=== PATIENT | female | born 1985 | race Caucasian/White ===

== ENCOUNTER 2020-02-28 17:49 | Outpatient (CLI) | payer BC, SELFPAY ==
--- NOTE | ~2020-02-28 | US_ITS ---
EXAMINATION: US thyroid DATE: 02/28/2020 18:08 INDICATION: Goiter TECHNIQUE: Multiple ultrasound images of the thyroid were obtained. COMPARISON: None. FINDINGS: The right thyroid lobe measures 5.7 x 2.2 x 1.9 cm. The left thyroid lobe measures 5.3 x 2.3 x 2.2 c m. There are several wider than tall very hypoechoic solid nodules with smooth margins and without e chogenic foci (TI-RADS 4, moderately suspicious , FNA if >=1.5 cm, annual followup is >1 cm), the lar gest in the left thyroid lobe measuring 1.6 cm in maximal diameter and 2 in the right thyroid lobe me asuring 1.5 cm and 0.9 cm in maximal diameters. There is normal echotexture, echogenicity and vascula r flow throughout the surrounding thyroid gland. IMPRESSION: 1. Multinodular goiter. Recommend ultrasound guided biopsy of the largest 1.6 cm TI RADS 4 left thyro id nodule. Could also consider biopsy of the 1.5 cm TI RADS 4 right thyroid nodule. Reviewed, dictated and finalized at location . [employer] SOLUT[employer] SPECIALIST IMPRESSION: 1. Multinodular goiter. Recommend ultrasound guided biopsy of the largest 1.6 c m TI RADS 4 left thyroid nodule. Could also consider biopsy of the 1.5 cm TI RA DS 4 right thyroid nodule.
== END 2020-02-28 17:50 ==
PROVIDERS: PCP Family Medicine; Visit Provider Family Medicine
DX: E04.2 Nontoxic multinodular goiter (principal)
CPT/HCPCS: 76536

== ENCOUNTER 2020-03-20 10:29 | Outpatient (CLI) | payer BC, SELFPAY ==
--- NOTE | ~2020-03-20 | US_ITS ---
EXAMINATION: US FNA w image guidance DATE: 03/20/2020 11:38 INDICATION: Nontoxic single thyroid nodule TECHNIQUE: A time-out was performed to verify the patient's name, date of , and procedure to be performed . The procedure and its benefits and risks were discussed with the patient. Risks specifically discus sed included bleeding and infection. The patient understood the risks and agreed to proceed. The neck was prepped and draped in the usual sterile manner. 4 mL 1% lidocaine was used for local anesthesia . 6 passes were made with a 25G needle into the lesion. Appropriate needle location was documented with continuous sonographic guidance. The specimens were passed to the rad technologist in the room. A sterile bandage was applied. There were no immediate complications. FINDINGS: Grayscale ultrasound images demonstrate biopsy needles advanced into a 2.1 cm solid very hypoechoic l eft thyroid nodule. On real-time imaging the largest nodules in the right thyroid lobe as measured on the prior study appears to be comprised of 2 separate nodules, a smaller nodule measuring 7 mm and t he larger measuring 1.3 cm, neither which meet criteria for biopsy. IMPRESSION: 1. Successful ultrasound-guided fine needle aspiration of a 2.1 cm TI RADS 4 left thyroid nodule. Reviewed, dictated and finalized at location A. 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 Successful ultrasound-guided fine needle aspiration of a 2.1 cm TI RADS 4 l eft thyroid nodule.
== END 2020-03-20 10:30 | disposition home or self-care (01) ==
LOC: ANHIMG 10:33
PROVIDERS: PCP Family Medicine; Visit Provider Otolaryngology
DX: E04.1 Nontoxic single thyroid nodule (principal)
CPT/HCPCS: 10005; 88173; 88305

== ENCOUNTER 2023-02-10 08:53 | Outpatient (CLI) | payer BC, SELFPAY ==
--- NOTE | 2023-02-23 09:14 | WPDHOMESLEEP ---
Sleep Study - Home Unattended Date of Study: 02/10/23 Ordering Provider: JULIO CESAR Florian Interpreting Provider: Brandi Rinaldi MD Home Sleep Study Type: Watch PAT Height: 1.68 m Weight: 108.862 kg Body Mass Index: 38.7 Neck Circumference (inches): 14.5 [place]: 11 Reason for Sleep Study Snoring, daytime hypersomnia Sleep History Concepcion Victoria is a 37-year-old female with history of GERD and tobacco use who underwent a home sleep test for evaluation of snoring, daytime hypersomnia, and morning headaches. there is a family history of sleep apnea, her father uses CPAP. She states she can get 10-12 hours of sleep at night and still wake up feeling tired. She never awakens from sleep short of breath. She occasionally awakens at night with heartburn, belching or cough. She frequently snores and frequently snores loudly enough that others complain. She never has trouble sleeping when she has a cold. She never suddenly wakes up gasping for breath during the night. She never has breathing problems at night. She never sweats excessively at night. She rarely notices her heart pounding or beating irregularly during the night. She frequently falls asleep during the day. She never falls asleep while driving. She never experiences loss of muscle tone with strong emotion. She never has trouble at work because of sleepiness. She occasionally feels paralyzed on waking or falling asleep. She never experiences vivid dreams upon waking or falling asleep. She does not feel afraid of going to sleep. She never has nightmares. She frequently recalls her dreams. She occasionally has thoughts racing through her mind. She never feels sad or depressed. She frequently feels anxiety or worry about things. She never notices parts of her body jerk. She rarely kicks during the night. She rarely feels crawling or aching feelings in her legs. She occasionally feels leg pain at night. She constantly grinds her teeth during sleep and never has morning jaw pain. She never feels bothered by pain during the day and is never awakened by pain during the night. She rarely wakes up feeling stiff in the morning. She frequently wakes with pain in her neck, spine, or joints. Normal bedtime is around 8:30pm on the weekdays and 10pm on the weekends, taking just a few minutes to fall asleep. She typically gets about 8 to 10 hours of sleep per night. Her wake up time is around 5:45am on the weekdays and 9 to 10am on the weekends. She typically wakes up a couple times per night, awake a few minutes to go use the bathroom then back to sleep. She takes naps in the afternoon or evening When she is off work. A short nap lasting 10-15 minutes may be refreshing. She is usually drowsy for 3 hours or longer after waking. she frequently has morning headaches, daytime sleepiness, memory or concentration problems and problems with sexual function. Habits: Current tobacco smoker. Drinks about 4 caffeinated beverages per day. No alcohol or recreational substances. [facility] Past Medical History Medical History GERD (gastroesophageal reflux disease) Tobacco abuse Surgical History Surgical History Tubal ligation status Family History Family History Father Hypertension Diabetes mellitus Heart disease Atrial fibrillation and flutter Anxiety Mother Melanoma Anxiety Hypothyroid Grandparent Carcinoma of colon maternal grandmother Leukemia maternal grandfather Heart disease paternal grandfather Social History Social History Social History: Smoking packs per day: 1 Smoking cigarettes per day: 20.0 Years smoked: 15 Smoking pack-years: 15.00 Smoking status: Current every day smoker Tobacco type: cigarettes Second clarso
[2023-02-23 09:27] VITALS: BMI 38.7
== END 2023-02-11 11:17 | disposition home or self-care (01) ==
LOC: ANHCSM 08:53
PROVIDERS: PCP Family Medicine; Visit Provider Physician Assistant
DX: G47.10 Hypersomnia, unspecified (principal)
CPT/HCPCS: 95800

== ENCOUNTER 2023-02-20 15:51 | Outpatient (CLI) | payer BC, SELFPAY ==
--- NOTE | ~2023-02-20 | CT_ITS ---
EXAMINATION:CT diagnostic chest wo con DATE: 02/20/2023 16:08 INDICATION: Localized enlarged lymph nodes. TECHNIQUE: Computed tomography (CT) of the chest was performed without intravenous contrast. Automate d exposure control and iterative reconstruction technique were employed. The dose-length product (DLP ) was 512.39 mGy-cm. COMPARISON: None. FINDINGS: The lungs demonstrate mild atelectasis. No pleural effusion. The heart size is normal. No p ericardial effusion. There is a gallstone in the gallbladder, which is normal in size. There are no p athologically enlarged lymph nodes. The bones are unremarkable. IMPRESSION: 1. No lymphadenopathy. Reviewed, dictated and finalized at location E. 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 No lymphadenopathy.
== END 2023-02-20 15:52 ==
LOC: MICIMG 15:51
PROVIDERS: PCP Physician Assistant; Visit Provider Physician Assistant
DX: R59.0 Localized enlarged lymph nodes (principal)
CPT/HCPCS: 71250

== ENCOUNTER 2023-03-19 14:42 | Outpatient (CLI) | payer BC, SELFPAY ==
--- NOTE | ~2023-03-19 | US_ITS ---
EXAMINATION: US transvaginal DATE: 03/19/2023 15:14 INDICATION: Pelvic and perineal pain Comparison:No prior studies for comparison. TECHNIQUE: Multiple endovaginal sonographic images of the pelvis performed. FINDINGS: The uterus measures 7.8 x 4.6 x 6.3 cm. The endometrial complex measures 6 mm. The right ovary measures 2.9 x 1.8 x 1.3 cm and the left ovary measures 2.9 x 2.7 x 2.4 cm. There ar e small follicles in each ovary. Normal doppler signal in both ovaries. There is no free fluid in the pelvis. There are no abnormal masses seen on either side. IMPRESSION: 1. Unremarkable pelvic ultrasound. Reviewed, dictated and finalized at location L. 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
== END 2023-03-19 14:43 ==
LOC: MICIMG 14:43
PROVIDERS: PCP Nurse Practitioner; Visit Provider Nurse Practitioner
DX: N92.1 Excessive and frequent menstruation with irregular cycle (principal); R10.2 Pelvic and perineal pain
CPT/HCPCS: 76830